=== PATIENT | male | born 1945 | race Caucasian/White ===

== ENCOUNTER 2025-02-12 11:13 | Observation (INO) ==
--- NOTE | 2025-02-12 11:36 | Emergency Department Note ---
Impression & Plan Metastases to the liver, Weight loss, Weakness, Fatigue, Elevated liver enzymes ED Provider Note NAME: MACKENZIE PUGH AGE: 79 SEX: M : 1945 ARRIVES VIA: Walk-In INFORMANT: [Patient] ED PROVIDER(S): [Carlitos Shah MD] CHIEF COMPLAINT: Doctor referred HISTORY OF PRESENT ILLNESS: The patient is a 79-year-old male who states that he was recently at his doctor's office for some weakness, weight loss and a discomfort noticed intermittently in the right upper quadrant. Today, he had an outpatient abdominal ultrasound that showed findings in his pancreas and portal vein, he was referred to the ER. The patient has lost about 10 pounds of weight. He feels fatigued and weaker than normal. He has noticed this intermittent right upper quadrant abdominal pain that seems to come on randomly. He has not noticed any fever, there is no increased cough or shortness of breath. No vomiting. He does admit that he has no appetite really anymore. The patient does have some difficulty with his urinary stream but no urinary burning. Of note, his doctor's office recently decrease his blood pressure medication as his pressure was lower in the office than it had been before. PMHx/PSHx/Social Hx: See Below PHYSICAL EXAM: GENERAL: Patient is in no acute distress. HEENT: No acute trauma, normocephalic atraumatic, mucous membranes moist, no nasal congestion. NECK: No stridor, no adenopathy, no meningismus, trachea is midline. LUNGS: Clear to auscultation bilaterally, no wheeze, no rhonchi, breath sounds equal. HEART: Without murmurs gallops or rubs, regular rate and rhythm. ABDOMEN: Soft, nontender, no peritonitis. EXTREMITIES: No cyanosis, full range of motion of all the joints without pain or difficulty. NEUROLOGIC: Oriented x 3, no acute motor or sensory deficits, no focal weakness. SKIN: No jaundice, no diaphoresis. DIFFERENTIAL DIAGNOSIS: Malignancy, pancreatitis, biliary obstruction, liver disease, electrolyte imbalance, anemia, among others. EMERGENCY DEPARTMENT PROCEDURES: MEDICAL DECISION MAKING: There is no leukocytosis. A very subtle anemia was seen. There is a normal platelet count. No worrisome coagulopathy by our testing. No renal failure or significant electrolyte abnormality. There were some liver enzyme elevations noted. No evidence for pancreatitis. ECG shows a normal sinus rhythm, no ischemia. Cardiac enzyme testing x 1 is not consistent with acute cardiac injury. Urinalysis does not show findings of infection. Chest x-ray does not show pneumonia or CHF. Abdominal and pelvis CT shows liver metastases with lymphadenopathy. No biliary obstruction. The portal vein was narrow. On exam, the patient was fairly thin but not in distress. He did not have any reproducible upper abdominal pain. The patient presents with fatigue, weakness, weight loss and an abnormal outpatient ultrasound of his abdomen. He was found by our workup to have metastatic liver disease, the source for the metastasis is unclear. The patient has no previous diagnosis of malignancy. Given the findings and the need for further investigation, hospitalization was certainly warranted. I did speak with the patient about his abnormal imaging. He understands the need for a hospital stay. I did speak with case management, the on-call hospitalist was consulted. Prior/Outside records/notes reviewed: Outpatient doctors office note from 02/10/2025 describing his presentation, findings and planned workup outpatient. ECG per my interpretation: Indication was weakness. The ECG shows a normal sinus rhythm with a rate of 78. There is a potential old septal infarct. There is some nonspecific ST change laterally. There is no ST elevation, no PVCs. The QTc is 440. Continuous Cardiac Monitoring per my interpretation: An order was placed for continuous cardiac monitoring. The monitor shows a rate of 90 with normal sinus rhythm. Imaging/x-ray results per my interpretation: Chest x-ray does not show pneumonia, cardiomegaly or CHF. Chronic Medical/Social conditions affecting care: None Care/Management discussed with: Case management, the on-call hospitalist. Level of care consideration(s): After review of the information above and other included data: --I believe the patient requires escalation of care to admission DISPOSITION: Admission Past Med/Surg History Problem List (Updated 02/12/25 @ 14:19 by Carlitos Shah MD) Elevated liver enzymes (Acute) Fatigue (Acute) Weakness (Acute) Weight loss (Acute) Metastases to the liver (Acute) Medical History Hypertension Social History Smoking Status: Never smoker Preferred Language: Japanese Feels Safe at Home: Yes Home Meds Home Medications Medication Instructions Recorded Confirmed lisinopril 20 mg tablet 20 mg PO DAILY 02/12/25 02/12/25 Results & Data (ED) Vital Signs Vital Signs - 24 hr 02/12/25 11:17 02/12/25 11:30 02/12/25 11:41 Temperature 36.6 C Temperature Source Temporal Artery Scan Pulse Rate 90 83 Pulse Rate [Apical] 88 Pulse Rhythm Regular Pulse Rhythm [Apical] Regular Pulse Strength [Apical] Normal Respiratory Rate 18 19 19 Respiratory Effort / Characteristics Non-Labored Spontaneous Non-Labored Respiratory Depth Normal Normal Respiratory Pattern Regular Regular Blood Pressure 123/81 Blood Pressure [Right Arm] 107/78 Blood Pressure Mean 95 Blood Pressure Mean [Right Arm] 87 Blood Pressure Position Sitting Blood Pressure Position [Right Arm] Lying Pulse Oximetry 96 98 98 Oxygen Delivery Method Room Air Room Air Room Air Sepsis Recent Fever Within 48 Hours No Sepsis New/Unexplained Change in Mental Status No Sepsis Action Taken by Nursing No Action Required 02/12/25 12:55 Temperature Temperature Source Pulse Rate Pulse Rate [Apical] 70 Pulse Rhythm Pulse Rhythm [Apical] Pulse Strength [Apical] Respiratory Rate 18 Respiratory Effort / Characteristics Non-Labored Spontaneous Respiratory Depth Normal Respiratory Pattern Blood Pressure Blood Pressure [Right Arm] 110/70 Blood Pressure Mean Blood Pressure Mean [Right Arm] 83 Blood Pressure Position Blood Pressure Position [Right Arm] Sitting Pulse Oximetry 97 Oxygen Delivery Method Room Air Sepsis Recent Fever Within 48 Hours Sepsis New/Unexplained Change in Mental Status Sepsis Action Taken by [place] Medications Current Medication List: was personally reviewed by me Laboratory Data Attestation: I reviewed the patient's lab results. 02/12/25 11:32 02/12/25 11:32 Lab Results 02/12/25 02/12/25 Range/Units 11:32 11:52 WBC 6.50 (4.8-10.8) K/ul RBC 4.55 L (4.70-6.10) M/uL Hgb 13.6 L (14.0-18.0) g/dl Hct 40.3 L (42.0-52.0) % MCV 88.6 (80.0-100.0) fL MCH 29.9 (25.0-34.0) pg MCHC 33.7 (32.0-36.0) g/dL RDW Std Deviation 42.3 (36.4-46.3) fL RDW Coeff of Samir 13.1 (11.5-14.5) % Plt Count 215 (130-400) K/uL MPV 9.6 (9.4-12.4) fL Immature Gran % (Auto) 0.3 % Neut % (Auto) 70.3 % Lymph % (Auto) 21.5 % [place] % (Auto) 6.5 % Eos % (Auto) 0.9 % Baso % (Auto) 0.5 % Neut # (Auto) 4.57 (1.40-6.50) K/uL Lymph # (Auto) 1.40 (1.20-3.40) K/uL [place] # (Auto) 0.42 (0.11-0.59) K/uL Eos # (Auto) 0.06 (0.00-0.50) K/uL Baso # (Auto) 0.03 (0.00-0.20) K/uL Immature Gran # (Auto) 0.02 (0.01-0.20) K/uL PT 12.2 H (9.0-12.0) Seconds INR 1.1 (0.9-1.1) APTT 23 (21-31) Seconds PTT Ratio 0.9 Sodium 139 (136-145) mmol/L Potassium 3.9 (3.5-5.1) mmol/L Chloride 103 (98-107) mmol/L Carbon Dioxide 37 H (21-32) mmol/L Anion Gap -1 L (3-11) BUN 22 (6-23) mg/dl Creatinine 0.97 (0.6-1.4) mg/dl Est Cr Clr Drug Dosing 51.4 ml/min eGFR 80.40 BUN/Creatinine Ratio 22.7 H (10-20) Glucose 110 H (70-99(Fasting)) mg/dl Calcium 8.7 (8.6-10.3) mg/dl Magnesium 2.0 (1.7-2.4) mg/dl Total Bilirubin 1.1 H (0.2-1.0) mg/dl AST 47 H (13-39) U/L ALT 34 (7-52) U/L Alkaline Phosphatase 208 H (34-104) U/L Troponin I High Sens 7.7 (0-20) pg/ml Total Protein 6.2 (6.0-8.3) gm/dl Albumin 3.8 (3.4-5.0) gm/dl Globulin 2.4 L (2.5-4.0) gm/dl Albumin/Globulin Ratio 1.6 (0.9-2) Lipase 43 (11-82) U/L Urine Color Dark Yellow Urine Appearance Clear (Clear) Urine pH 5.0 (4.5-7.5) Ur Specific [place] 1.029 (1.000-1.030) Urine Protein Trace H (Negative) Urine Glucose (UA) Negative (Negative) Urine Ketones Trace H (Negative) Urine Blood Negative (Negative) Urine Nitrite Negative (Negative) Urine Bilirubin 1+ H (Negative) Urine Urobilinogen Negative (Negative) Ur Leukocyte Esterase 1+ H (Negative) Urine WBC (Auto) 0-5 (0-5) /hpf Urine RBC (Auto) 0-2 (0-2) /hpf U Hyaline Cast (Auto) 0-2 (0-2) /lpf U Epithel Cells (Auto) 0-2 (0-2) /hpf Urine Bacteria (Auto) None Seen (None Seen) Administered Medications Discontinued Medications Ioversol (Optiray 320 100ml) 93 ml IV ONCE ONE Stop: 02/12/25 12:40 Last Admin: 02/12/25 12:40 Dose: 93 ml Documented By: Imaging Data Radiologist's Impression: Abdomen/Pelvis CT 02/12/25 11:[address] WITH IV CONTRAST CT DOSE: 446.24 mGy.cm HISTORY: abnl panc and portal vein by us outpt TECHNIQUE: Multiaxial CT images of the abdomen and pelvis were performed following the IV administration of 90 cc of Optiray, A dose lowering technique was utilized adhering to the principles of ALARA. COMPARISON STUDY: None FINDINGS: ABDOMEN: There are multiple masses scattered throughout the liver, largest measuring 8 cm. Gallbladder is unremarkable. There are multiple enlarged necrotic appearing trace hepatis lymph nodes measuring up to 3 cm. They cause mass effects and severe narrowing of the portal vein without occlusion. There are multiple other periaortic and gastrohepatic and anterior upper abdominal enlarged lymph nodes measuring up to 3 cm. Some of the lymph nodes are adjacent to the proximal pancreas and exert mass effect on the proximal pancreas. Otherwise no pancreatic mass seen. No pancreatic ductal dilatation. Spleen and adrenal glands are unremarkable. Kidneys show no hydronephrosis or calculi. There are a few small cysts at the left kidney. There are scattered atherosclerotic calcifications. No abdominal aortic aneurysm. Pelvis: Prostate is prominently enlarged and indents the urinary bladder base. Urinary bladder is decompressed. There is trace ascites at the low pelvis. There is extensive sigmoid diverticulosis. No acute diverticulitis. No free air or abscess. Osseous structures: There is osteopenia. There are diffuse findings of degenerative disc disease at the lumbar spine. There are mild degenerative changes at the hips. No acute osseous findings. IMPRESSION: 1. Diffuse metastatic disease at the liver. Extensive metastatic lymphadenopathy at the abdomen. 2. Some of the lymph nodes exert mass effect on the proximal pancreas. Unclear if these are external to the pancreas and exerting mass effect, or if there is a proximal pancreatic mass. There is no pancreatic ductal dilatation which favors that they represent metastatic lymph nodes. Severe mass effect/narrowing of the portal vein. 3. Otherwise as described. ACT 112: Positive. There are findings on this exam that require communication between the performing entity and the patient following Patient Test Result Information Act ([place] Act 112) guidelines. The above report was generated using voice recognition software. It may contain grammatical, syntax or spelling errors. Electronically signed by: Yony Santizo M.D. 02/12/2025 1:04 PM Chest X-Ray 02/12/25 11:31 XR chest 1V portable CLINICAL HISTORY: weak COMPARISON STUDY: None FINDINGS: Heart size and pulmonary vasculature are normal. No effusion, consolidation, or pneumothorax. IMPRESSION: No acute findings. ACT 112: Negative or not required by law. Electronically signed by: Yony Santizo M.D. 02/12/2025 11:48 AM Abdominal ultrasound outpatient: Impression: There is hepatomegaly with multiple underlying masses suspicious for metastatic disease. 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 There is heterogeneity of the pancreas with underlying masses. There is mild ascites. Discharge Plan Visit Data Chief Complaint: Referred by Doctor Stated Complaint: REF BY DOC, MASS ON ARTERY ED Provider: Carlitos Shah Discharge Problem: Metastases to the liver, Weight loss, Weakness, Fatigue, Elevated liver enzymes Patient Disposition: Admitted As Inpatient Condition: Fair Forms Stand Alone Forms: Screen Fix [place] Prescriptions Prescriptions: No Action lisinopril 20 mg tablet 20 mg PO DAILY Rx Instructions: last filled 11/08/24 90 day supply Referrals Referrals: Obdulia Erickson DO [Primary Care Provider] - Discharge Problem: Fatigue Qualifiers: Fatigue type: unspecified Qualified Code(s): R53.83 - Other fatigue
--- NOTE | 2025-02-12 11:49 | XRay Report ---
XR chest 1V portable CLINICAL HISTORY: weak COMPARISON STUDY: None FINDINGS: Heart size and pulmonary vasculature are normal. No effusion, consolidation, or pneumothora x. IMPRESSION: No acute findings. ACT 112: Negative or not required by law. Electronically signed by: Yony Santizo M.D. 02/12/2025 11:48 AM
[2025-02-12 11:50] LABS: Basophils # (auto) 0.03 K/uL (0.00-0.20); Basophils % (auto) 0.5 %; Eosinophils # (auto) 0.06 K/uL (0.00-0.50); Eosinophils % (auto) 0.9 %; Hematocrit (blood only) 40.3 % (42.0-52.0); Hemoglobin 13.6 g/dl (14.0-18.0); Immature Granulocytes # (auto) 0.02 K/uL (0.01-0.20); Immature Granulocytes % (auto) 0.3 %; Lymphocytes % (auto) 21.5 %; Mean Corpuscular Hemoglobin 29.9 pg (25.0-34.0); Mean Corpuscular Hgb Conc 33.7 g/dL (32.0-36.0); Mean Corpuscular Volume 88.6 fL (80.0-100.0); Mean Platelet Volume 9.6 fL (9.4-12.4); Monocytes # (auto) 0.42 K/uL (0.11-0.59); Monocytes % (auto) 6.5 %; Neutrophils # (auto) 4.57 K/uL (1.40-6.50); Neutrophils % (auto) 70.3 %; Platelet Count 215 K/uL (130-400); RDW Coefficient of Variation 13.1 % (11.5-14.5); RDW Standard Deviation 42.3 fL (36.4-46.3); Red Blood Count 4.55 M/uL (4.70-6.10)
[2025-02-12 12:07] LABS: Albumin Globulin Ratio 1.6 (0.9-2); Albumin Level 3.8 gm/dl (3.4-5.0); BUN Creatinine Ratio 22.7 (10-20); Bilirubin,Total 1.1 mg/dl (0.2-1.0); Calcium 8.7 mg/dl (8.6-10.3); Creatinine Clr Calc Pharmacy 51.4 ml/min; Globulin 2.4 gm/dl (2.5-4.0); Potassium 3.9 mmol/L (3.5-5.1); Total Protein 6.2 gm/dl (6.0-8.3)
[2025-02-12 12:12] LABS: Appearance Urine Clear (Clear); Bacteria Urine Automated None Seen (None Seen); Bilirubin Urine 1+ (Negative); Blood Urine Negative (Negative); Cast Urine Automated 0-2 /lpf (0-2); Color Urine Dark Yellow; Epithelial Cell Urine Auto 0-2 /hpf (0-2); Glucose Urine UA Negative (Negative); Ketones Urine Trace (Negative); Leukocyte Esterase Urine 1+ (Negative); Nitrite Urine Negative (Negative); Protein Urine Trace (Negative); RBC Urine Automated 0-2 /hpf (0-2); Specific Gravity Urine 1.029 (1.000-1.030); Urobilinogen Urine Negative (Negative); WBC Urine Automated 0-5 /hpf (0-5)
[2025-02-12 12:14] LABS: Troponin I High Sensitivity 7.7 pg/ml (0-20)
[2025-02-12 12:18] LABS: INR 1.1 (0.9-1.1); Partial Thromboplastin Ratio 0.9; Partial Thromboplastin Time 23 Seconds (21-31); Prothrombin Time 12.2 Seconds (9.0-12.0)
[2025-02-12] MEDS: OPTIRAY 320 100ml IV ONE (12:40)
--- NOTE | 2025-02-12 13:00 | Electrocardiogram Report ---
Test Reason : Blood Pressure : */* mmHG Vent. Rate : 78 BPM Atrial Rate : 78 BPM P-R Int : 146 ms QRS Dur : 74 ms QT Int : 386 ms P-R-T Axes : 69 34 46 degrees QTcB Int : 440 ms Normal sinus rhythm Left atrial enlargement Low voltage QRS Septal infarct , age undetermined Abnormal ECG No previous ECGs available Confirmed by Zeferino Lucero ([id number]) on 02/12/2025 1:00:18 PM Referred By: Obdulia Erickson Confirmed By: Zeferino Lucero
--- NOTE | 2025-02-12 13:06 | CT Scan Report ---
ABDOMEN AND PELVIS CT WITH IV CONTRAST CT DOSE: 446.24 mGy.cm HISTORY: abnl panc and portal vein by us outpt TECHNIQUE: Multiaxial CT images of the abdomen and pelvis were performed following the IV administrat ion of 90 cc of Optiray, A dose lowering technique was utilized adhering to the principles of ALARA. COMPARISON STUDY: None FINDINGS: ABDOMEN: There are multiple masses scattered throughout the liver, largest measuring 8 cm. Gallbladde r is unremarkable. There are multiple enlarged necrotic appearing trace hepatis lymph nodes measuring up to 3 cm. They cause mass effects and severe narrowing of the portal vein without occlusion. There are multiple other periaortic and gastrohepatic and anterior upper abdominal enlarged lymph nodes me asuring up to 3 cm. Some of the lymph nodes are adjacent to the proximal pancreas and exert mass effe ct on the proximal pancreas. Otherwise no pancreatic mass seen. No pancreatic ductal dilatation. Sple en and adrenal glands are unremarkable. Kidneys show no hydronephrosis or calculi. There are a few sm all cysts at the left kidney. There are scattered atherosclerotic calcifications. No abdominal aortic aneurysm. Pelvis: Prostate is prominently enlarged and indents the urinary bladder base. Urinary bladder is dec ompressed. There is trace ascites at the low pelvis. There is extensive sigmoid diverticulosis. No ac [place] diverticulitis. No free air or abscess. Osseous structures: There is osteopenia. There are diffuse findings of degenerative disc disease at t he lumbar spine. There are mild degenerative changes at the hips. No acute osseous findings. IMPRESSION: 1. Diffuse metastatic disease at the liver. Extensive metastatic lymphadenopathy at the abdomen. 2. Some of the lymph nodes exert mass effect on the proximal pancreas. Unclear if these are external to the pancreas and exerting mass effect, or if there is a proximal pancreatic mass. There is no panc reatic ductal dilatation which favors that they represent metastatic lymph nodes. Severe mass effect/ narrowing of the portal vein. 3. Otherwise as described. ACT 112: Positive. There are findings on this exam that require communication between the performing entity and the patient following Patient Test Result Information Act ([place] Act 112) guidelines. The above report was generated using voice recognition software. It may contain grammatical, syntax o r spelling errors. Electronically signed by: Yony Santizo M.D. 02/12/2025 1:04 PM
--- NOTE | 2025-02-12 14:19 | History & Physical Report ---
Date of Service February 12, 2025 Assessment & Plan (1) Liver masses: (2) Elevated liver enzymes: (3) Weight loss: (4) Fatigue: (5) Hypertension: (6) Hyperlipidemia: Plan 79 year old male with PMH significant for HTN, HLD, and elevated PSA who presented to the ED today after an abdominal ultrasound showed multiple liver masses concerning for metastasis. Liver masses Hepatomegaly appreciated and left supraclavicular enlarged lymph node Plan for US guided biopsy by IR in the am Ordered CEA, CA-19, PSA, AFP, pepsinogen Elevated liver enzymes Weight loss Likely secondary to possible liver metastasis HTN On lisinopril with recent dose reduction from 20mg to 10mg due to low BPs BPs stable here and patient did not take this am - will hold lisinopril for now Monitor BPs and consider resumption of lisinopril if elevated HLD Not on medications at home DVT Prophylaxis: TEDs and SCDs; held off on other prophylaxis due to procedure tomorrow Code Status: FULL CODE - As per discussion at bedside with the patient. PCP: Obdulia Oswald Disposition: admit to [facility] under obs Patient seen in collaboration with Dr Chou. Please see addendum. I spent a total of 75 minutes coordinating, documenting and providing care for this patient excluding time spent in the performance of separately billed services or time spent by another provider/QHP. Admission and Anticipated Discharge Date Admission Date: 02/12/2025 History of Present Illness Chief Complaint: RUQ pain Primary Care Provider: Obdulia Erickson, 79 year old male with PMH significant for HTN, HLD, and elevated PSA who presented to the ED today by recommendation of his PCP after concerning imaging. He was seen by his PCP on 02/10 for routine follow up but mentioned a painful lump in his RUQ x1 month as well as poor appetite, fatigue, and weight loss. He had an abdominal ultrasound done which showed multiple liver masses suspicious for metastasis and was referred to the ED. He reports intermittent RUQ pain that feels like a bharti horse and only comes on when he makes certain movements. He also endorses a gradual weight loss over the last year of approximately 10 lbs. He denies fevers, chills, night sweats, cough, cold symptoms, chest pain, SOB, other abdominal pain, N/V/D, melena, hematochezia. Allergies Allergy/AdvReac Type Severity Reaction Status Date / Time atorvastatin AdvReac Verified 02/12/25 16:21 Home Medications Medication Instructions Recorded Confirmed Type lisinopril 10 mg tablet 10 mg PO DAILY 02/12/25 02/12/25 History Past Med/Surg History Problem List (Updated 02/12/25 @ 16:29 by MADI Garcia) Liver masses Hyperlipidemia Hypertension Elevated liver enzymes (Acute) Fatigue (Acute) Weakness (Acute) Weight loss (Acute) Metastases to the liver (Acute) Surgical History (Updated 02/12/25 @ 16:27 by MADI Garcia) History of appendectomy H/O vitrectomy H/O cataract removal with insertion of prosthetic lens H/O inguinal hernia repair Family History (Updated 02/12/25 @ 16:27 by MADI Garcia) Father Cancer Social History (Updated 02/12/25 @ 16:27 by MADI Garcia) Smoking Status: Never smoker Tobacco Type: Smokeless Tobacco (Dip or Chew) Do You Dip or Chew Tobacco: Yes; Hx Alcohol Use: Yes Hx Substance Use: No Preferred Language: Bermudian Current Living Situation: Spouse Feels Safe at Home: Yes Assistive Devices: None Review of Systems Review of Systems: All systems reviewed & are unremarkable except as noted in HPI & below Physical Exam Physical Exam: General/Psych: WD/WN, sitting up in bed, NAD, conversing easily, euthymic affect Head: normocephalic, atraumatic Eyes: normal inspection, PERRL, conjunctivae pink, anicteric sclerae ENT: external ear and nose normal, oropharynx normal Neck: normal visual inspection, trachea midline, no thyromegaly, +enlarged supraclavicular lymph node Respiratory: normal respiratory effort, lungs clear to auscultation, no wheeze/rales/rhonchi, no accessory muscle use Cardiovascular: regular rate and rhythm, no murmur/rub/gallop, no JVD Extremities: no cyanosis or clubbing, normal peripheral pulses, no BLE edema Abdomen/GI: normal bowel sounds, soft, nontender, +hepatosplenomegaly Neurologic/MSK: A+Ox3, CN's II-XI intact bilaterally, motor strength 5/5, moves all extremities Skin: no rashes, normal color, warm and dry Results & Data Results & Data Vital Signs (Past 12 Hours) Vital Signs Temp Pulse Pulse Resp BP BP Pulse Ox 02/12/25 12:55 70 18 110/70 97 02/12/25 11:41 83 19 98 02/12/25 11:30 88 19 107/78 98 02/12/25 11:17 36.6 C 90 18 123/81 96 O2 Del Method 02/12/25 12:55 Room Air 02/12/25 11:41 Room Air 02/12/25 11:30 Room Air 02/12/25 11:17 Room Air Laboratory Results Short CBC 02/12/25 Range/Units 11:32 WBC 6.50 (4.8-10.8) K/ul Hgb 13.6 L (14.0-18.0) g/dl Hct 40.3 L (42.0-52.0) % Plt Count 215 (130-400) K/uL BMP 02/12/25 11:32 Sodium 139 Potassium 3.9 Chloride 103 Carbon Dioxide 37 H BUN 22 Creatinine 0.97 Glucose 110 H Calcium 8.7 Liver Function 02/12/25 Range/Units 11:32 Total Bilirubin 1.1 H (0.2-1.0) mg/dl AST 47 H (13-39) U/L ALT 34 (7-52) U/L Alkaline Phosphatase 208 H (34-104) U/L Albumin 3.8 (3.4-5.0) gm/dl Urine 02/12/25 Range/Units 11:52 Urine Color Dark Yellow Urine Appearance Clear (Clear) Urine pH 5.0 (4.5-7.5) Ur Specific [place] 1.029 (1.000-1.030) Urine Protein Trace H (Negative) Urine Glucose (UA) Negative (Negative) I have independently reviewed and interpreted patient's admitting labs including CBC, CMP, PTT, PT/INR, troponin, lipase, and UA. Diagnostic Findings EXAM US ABDOMEN LIMITED-02/12/2025 9:46 am HISTORY RUQ painful lump at times TECHNIQUE Sonographic imaging of the abdomen. COMPARISON None FINDINGS LIVER: Enlarged, 20.6 cm. Diffuse heterogeneity, with multiple underlying masses. No mass. 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 BILE DUCTS: No intrahepatic or extrahepatic duct dilatation. Common bile duct measures 4 mm. GALLBLADDER: Mild nonspecific wall thickening. No cholelithiasis. No pericholecystic fluid or sonographic Delgado's sign. PANCREAS: Heterogeneity of the pancreas with underlying hypoechoic masses. RIGHT KIDNEY: 10.4 cm in length. Normal size and echogenicity. No hydronephrosis, shadowing calculi, or mass. LEFT KIDNEY: in length. Normal size and echogenicity. No hydronephrosis, shadowing calculi, or mass. SPLEEN: 9.9 cm. Normal size without mass. AORTA: Visualized portions normal in caliber. OTHER: Mild ascites. IMPRESSION IMPRESSION 1. Hepatomegaly with multiple underlying masses, suspicious for metastatic disease. 2. 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 3. Heterogeneity of the pancreas with underlying masses. 4. Mild ascites. Recommend MRI/MRCP abdomen with gadolinium. Abdomen/Pelvis CT 02/12/25 11:[address] WITH IV CONTRAST CT DOSE: 446.24 mGy.cm HISTORY: abnl panc and portal vein by us outpt TECHNIQUE: Multiaxial CT images of the abdomen and pelvis were performed following the IV administration of 90 cc of Optiray, A dose lowering technique was utilized adhering to the principles of ALARA. COMPARISON STUDY: None FINDINGS: ABDOMEN: There are multiple masses scattered throughout the liver, largest measuring 8 cm. Gallbladder is unremarkable. There are multiple enlarged necrotic appearing trace hepatis lymph nodes measuring up to 3 cm. They cause mass effects and severe narrowing of the portal vein without occlusion. There are multiple other periaortic and gastrohepatic and anterior upper abdominal enlarged lymph nodes measuring up to 3 cm. Some of the lymph nodes are adjacent to the proximal pancreas and exert mass effect on the proximal pancreas. Otherwise no pancreatic mass seen. No pancreatic ductal dilatation. Spleen and adrenal glands are unremarkable. Kidneys show no hydronephrosis or calculi. There are a few small cysts at the left kidney. There are scattered atherosclerotic calcifications. No abdominal aortic aneurysm. Pelvis: Prostate is prominently enlarged and indents the urinary bladder base. Urinary bladder is decompressed. There is trace ascites at the low pelvis. There is extensive sigmoid diverticulosis. No acute diverticulitis. No free air or abscess. Osseous structures: There is osteopenia. There are diffuse findings of degenerative disc disease at the lumbar spine. There are mild degenerative changes at the hips. No acute osseous findings. IMPRESSION: 1. Diffuse metastatic disease at the liver. Extensive metastatic lymphadenopathy at the abdomen. 2. Some of the lymph nodes exert mass effect on the proximal pancreas. Unclear if these are external to the pancreas and exerting mass effect, or if there is a proximal pancreatic mass. There is no pancreatic ductal dilatation which favors that they represent metastatic lymph nodes. Severe mass effect/narrowing of the portal vein. 3. Otherwise as described. ACT 112: Positive. There are findings on this exam that require communication between the performing entity and the patient following Patient Test Result Information Act ([place] Act 112) guidelines. The above report was generated using voice recognition software. It may contain grammatical, syntax or spelling errors. Electronically signed by: Yony Santizo M.D. 02/12/2025 1:04 PM Chest X-Ray 02/12/25 11:31 XR chest 1V portable CLINICAL HISTORY: weak COMPARISON STUDY: None FINDINGS: Heart size and pulmonary vasculature are normal. No effusion, c onsolidation, or pneumothorax. IMPRESSION: No acute findings. ACT 112: Negative or not required by law. Electronically signed by: Yony Santizo M.D. 02/12/2025 11:48 AM ECG Additional Comments: I have independently reviewed and interpreted patient's admitting EKG which revealed: NSR at a rate of 78bpm Code Status & VTE Plan Code Status Full Code Supervising Physician Co-Signing Physician Notes Attending addendum: The patient was seen and examined in emergency room in presence of the family members He has been complaining of intermittent pain in the right upper quadrant for about 1 year associated with loss of appetite and weight loss of about 20 pounds for the last few months Denies any nausea and/or vomiting or any problem with urine or bowel habit Feels early satiety No fever and/or chills, no chest pain palpitation no shortness of breath On examination Lying in bed without any acute distress Remains hemodynamically stable and is afebrile Chestclear to auscultate bilaterally Abdomenliver is palpable and mildly tender on deep palpation, bowel sounds present Extremitiesno edema General examination revealed no lymphadenopathy except left supraclavicular lymph node is palpable CNSalert, awake and oriented x 3 and no focal sensory or no motor deficit appreciated His admission labs, medications and imaging studies reviewed CT of the abdomen pelvis showed significant and extensive metastasis in the liver with necrotic lymph nodes around trace hepatis compressing the portal vein Assessment and plan Has metastatic disease in the differential is going to be gastric carcinoma, and to rule out colonic malignancy, pancreatic cancer, prostate cancer Will probably get supraclavicular node biopsy tomorrow/liver biopsy when feas ible Will check tumor markers like CEA, PSA, CA 199 , alpha-fetoprotein and pepsin was not Agree with assessment and plan as outlined above by Arcelia PAYNE. MADI Turner and take the full responsibility here in the hospital Total time taken to document all this was [address] Manish Chou (4) Fatigue Fatigue type: unspecified Qualified Code(s): R53.83 - Other fatigue
[2025-02-12] MEDS ORDERED: POLYETHYLENE (MIRALAX) 17 GM PACK PO PRN (18:21)
[2025-02-12] MEDS ORDERED: ACETAMINOPHEN 325 MG TAB PO PRN (18:21)
--- OUTSIDE RECORDS SUMMARY | 2025-02-13 03:36 | External Medical Summary | Summary of Care ---
Author Name Unknown Organization [facility] Address [address] [place] [address] Phone [phone] Care Team Providers Care Brake Linings Coater Name Role Phone Obdulia Erickson DO Primary Care Provider [phone] Reason for Visit * Reason Onset Date Comments Encounter Created in Error 02/12/2025 Encounter Details Date Type Department Care Team (Late st Contact Info) Description 02/12/2025 Telephone Family [address] [phone] [place] Jaime [address] [place] [address] Encounter Created in Error Allergies Active Allergy Reactions Criticality Noted Date Comments Atorvastatin Muscle pain 01/06/2018 documented as of this encounter (statuses as of 02/12/2025) Medications FLAXSEED (LINSEED) PO POWD daily Active Lisinopril 10 MG Oral Tablet (Prinivil)Indica tions:HTN, goal below 140/90 Take 1 Tablet by mouth in the morning. 90 Tablet 3 02/10/2025 Active documented as of this encounter (statuses as of 02/12/2025) Active Problems Problem Noted Date Diagnosed Date Elevated prostate specific antigen (PSA) 025 Family history of prostate cancer in father 12/20 History of retinal detachment 06/20/2021 Hx of nonmelanoma skin cancer 05/12/2019 Overview (05/12/2019): basal cell carcinoma (central back 2010) Actinic keratoses 05/12/2019 History of basal cell cancer 07/01/2012 Overview (07/01/2012): central back 06/01 HTN, goal below 140/90 06/02/2011 Hyperlipidemia with target LDL less than 100 09/2011 documented as of this encounter (statuses as of 02/12/2025) Resolved Problems Problem Noted Date Diagnosed Date Resolved Date Left inguinal hernia 10/30/2023 024 Prediabetes 01/14/2017 01/06/2019 Tobacco use disorder 06/02/2011 014 HTN, goal below 130/80 03/06/201106/02 documented as of this encounter (statuses as of 02/12/2025) Immunizations Name Administration Dates Next Due COVID-19 mRNA, LNP-s, No Pre serve, 2-Dose Series (Moderna) 03/16/2021,02/16/2021 COVID-19, mRNA, LNP-s, PF, B ooster, 100mcg/0.5mg (Moderna) 11/01/2021 DTaP Dipth/Tet/Acell Pertussis (Infanrix), Peds 03/22/2010 Seasonal Influenza Vac., MDV , IM, 0.5 mL (Fluzone) 07/22/2014,08/09/2013,07/22/2012,2010,07/31/2010 Seasonal Influenza, High Dos e, Trivalent, PF, IM (Fluzone HD) 08/02/2024 Seasonal Influenza, PF, 6 M & above, IM , (FluLaval or Fluzone) 08/06/2021,07/24/2020,07/28/2019,2017,08/14/2017 Seasonal Influenza, Quadriva lent Hd (Fluzone Hd) 08/11/2023,07/29/2022 Seasonal Influenza, Quadriva lent, No Preserve, IM 09/04/2016,08/23/2015 TDAP, Age 7 and older, IM (Adacel) 06/02/2011 documented as of this encounter Social History Tobacco Use Types Packs/Day Years Used Date Smoking Tobacco: Never Smokeless Tobacco: Current Snuff Comments:1 can per 2-3 days Alcohol Use Standard Drinks/Week Comments Yes 2.5 (1 standard drink = 0.6 oz p ure alcohol) 1-2 beers a night AUDIT-C Answer Date Recorded Frequency of Alcohol Consumption 4 or more times a week 06/15/2021 Average Number of Drinks 1 or 2 021 Frequency of Binge Drinking Not on file 05/23 PHQ-2 Answer Date Recorded PHQ-2 Score 0 08/25/2018 Sex and Gender Information Value Date Recorded Sex Assigned at Not on file Legal Sex Male 5:27 AM EST Gender Identity Not on file Sexual Orientation Not on file 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 Industry 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 Start Date Job 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 Not on file Not on file Not on file documented as of this encounter Plan of Treatment Upcoming Encounters Date Type Department Care Team (Late st Contact Info) Description 02/13/2025 9:00 AM EDT Imaging Radiology [address] [place] [address] 02/13/2025 9:30 AM EDT Imaging Radiology [address] [place] [address] Health Maintenance Due Date Last Done Comments Depression Screening 1957 Pneumococcal Vaccine: 50+ Years (1 of 1 - PCV) 1997 Zoster Vaccines (1 of 2) 1997 Adult Wellness Visit 06/11/2016 06/11/2015 DTap/Tdap Vaccines (3 - Td or Tdap) 06/02/2021 06/02/2011, 03/22/2010 COVID-19 Vaccine (4 - season) 2024 11/01/2021, 03/16/2021, 02/16/2021 Albumin/Creatinine Ratio 06/16/2025 06/16/2022 GFR 02/10/2026 02/10/2025, 05/24, 06/19/2023, Additional history exists Fecal Occult Blood Test Discontinued 01/18/2017 Cologuard Discontinued 01/13/2019, 01/01/2019 Colorectal Cancer Screening Discontinued Influenza Vaccine (FLU shot) Completed 08/02/2024, 08/11/2023, 08/11/2023, Additional history exists Colonoscopy Discontinued HPV (Gardasil) Vaccine Aged Out No lo nger eligible based on patient's age to complete this topic Hepatitis B Vaccine Aged Out No longe r eligible based on patient's age to complete this topic MENINGOCOCCAL (MENACTRA/MENVEO) Aged Out No longer eligible based on patient's age to complete this topic Meningitis B Vaccine (Bexsero/Trumemba) Aged Out No longer eligible based on patient's age to complete this topic Sigmoidoscopy Discontinued documented as of this encounter Medical Devices Implanted Type Area Butcher All Round Device Identifier Shelf Expiration Date Model / Serial / Lot Lens 20.5 [id number] - [id number] - [id number] Implanted:Qty: 1 on 01/18/2022 by Eliu Santana DO at OR [facility] Left: Eye MURRAY : SURGICAL 03/23/2026 [id number] / [id number] / Patch Mesh Pre-W/Cord Opening - [id number] Implanted:Qty: 1 on 10/30/2023 by Cash Argueta MD at OR [facility] Left: Abdomen CR BARD : DAVOL 10/18/2025 [id number] / / [id number] Description:left inguinal documented as of this encounter Advance Directives * Full Code (Latest Code Status on File) Date Activated Date Inactivated Comments 10/30/2023 7:43 AM 10/30/2023 2:16 PM This order ref lects the patients wishes and were consensually agreed upon. Question Answer Comments Discussion of Advance Directives occurred with: Patient Care Teams Brake Linings Coater Relationship Specialty Start Date End Date Obdulia Erickson DO [address] [place] [address] [place] [address] PCP - General Internal Medicine 01/01/19 documented as of this encounter
--- OUTSIDE RECORDS SUMMARY | 2025-02-13 03:37 | External Medical Summary | Summary of Care ---
Author Name Unknown Organization [facility] Address [address] [place] [address] Phone [phone] Care Team Providers Care Consultant Name Role Phone Obdulia Erickson DO Primary Care Provider Reason for Visit * Reason Onset Date Comments Referral 02/10/2025 [facility]OLOG[facility] Encounter Details Date Type Department Care Team ([facility] st Contact Info) Description 02/10/2025 Telephone Family Medicine [address] [phone] Obdul[address] Erickson [address] [address] Referral ([facility]) Allergies Active Allergy Reactions Criticality Noted Date Comments Atorvastatin Muscle pain 01/06/2018 documented as of this encounter (statuses as of 02/10/2025) Medications FLAXSEED (LINSEED) PO POWD daily Active Lisinopril 10 MG Oral Tablet (Prinivil)Indica tions:HTN, goal below 140/90 Take 1 Tablet by mouth in the morning. 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 I faxed referral,demo's and notes to [facility] Urology [phone]. Noted on fax cover sheet, I will fax updated PSA to them when finalized. documented in this encounter Plan of Treatment Upcoming Encounters Date Type Department Care Team (Late st Contact Info) Description 02/12/2025 9:00 AM EDT Imaging Radiology [address] [place] [address] Health Maintenance Due Date Last Done Comments Depression Screening 1957 Pneumococcal Vaccine: 50+ Years (1 of 1 - PCV) 1997 Zoster Vaccines (1 of 2) 1997 Adult Wellness Visit 06/11/2016 06/11/2015 DTap/Tdap Vaccines (3 - Td or Tdap) 06/02/2021 06/02/2011, 03/22/2010 COVID-19 Vaccine ( - season) 2024 11/01/2021, 03/16/2021, 02/16/2021 Albumin/Creatinine Ratio 06/16/2025 06/16/2022 GFR 06/20/2025 06/20/2024, 08/06/2023, 06/16/2022, Additional history exists Fecal Occult Blood Test [...] this encounter Medical Devices Implanted Type Area Diver Pumper Device Identifier Shelf Expiration Date Model / Serial / Lot Lens 20.5 [id number] - [id number] - [id number] Implanted:Qty: 1 on 01/18/2022 by Eliu Santana DO at OR [facility] Left: Eye MURRAY : SURGICAL 03/23/2026 [id number] / [id number] / Patch Mesh Pre-W/Cord Opening - [id number] Implanted:Qty: 1 on 10/30/2023 by Cash Argueta MD at OR [facility] Left: Abdomen CR BARD : DAVOL 10/18/2025 [id number] / / [id number] Description:left inguinal documented as of this encounter Advance Directives * Full Code (Latest Code Status on File) Date Activated Date Inactivated Comments 10/30/2023 7:43 AM 10/30/2023 2:16 PM This order ref lects the patients wishes and were consensually agreed upon. Question Answer Comments Discussion of Advance Directives occurred with: Patient Care Teams Consultant Relationship Specialty Start Date End Date Obdulia Erickson DO [address] [place] [address] [place] [address] PCP - General Internal Medicine 01/01/19 documented as of this encounter
--- OUTSIDE RECORDS SUMMARY | 2025-02-13 03:37 | External Medical Summary | Summary of Care ---
Author Name Unknown Organization [facility] Address [address] [place] [address] Phone [phone] Care Team Providers Care Waffle Machine Operator Name Role Phone Obdulia Erickson DO Primary Care Provider [phone] Reason for Referral * Evaluate & Treat - Unlimited Visits (Within 3 days (urgent)) - Authorized Specialty Diagnoses / Procedures Referred By Abeba mancia Referred To Contact Urology Diagnoses Elevated prostate specific antigen (PSA) Obdulia Erickson DO [address] [place] [address] [place] [address] Phone: tel: fax: Referral ID Status Reason Start Date Expiration Date Visits Requested Visits Authorized [id number] Authorized Specialty Services Required 02/10/2025 999 999 Question Answer Referral Priority Within 3 days (urgent) Where should this appointment be scheduled? [facility] What is the patient being referred for? Elevated PSA Reason for Visit * Reason Comments Re-Check Pt c/o painful lump in lower right side of abdomen; no appetite; fatigue; back pain Encounter Details Date Type Department Care Team (Late st Contact Info) Description 02/10/2025 10:30 AM EDT Office Visit Family Medicine [address] [place] [phone] Obdulia Erickson DO [address] [place] [address] [place] [address] HTN, goal below 140/90*; Hyperlipidemia with target LDL less than 100; Elevated prostate specific antigen (PSA); RUQ pain; Lump in neck Allergies Active Allergy Reactions Criticality Noted Date Comments Atorvastatin Muscle pain 01/06/2018 documented as of this encounter (statuses as of 02/10/2025) Medications FLAXSEED (LINSEED) PO POWD daily Active Lisinopril 10 MG Oral Tablet (Prinivil)Indic ations:HTN, goal below 140/90 Take 1 Tablet by mouth in the morning. 90 Tablet 3 5 Active Lisinopril 20 MG Oral Tablet (Prinivil)Indic ations:takes in the evening Take 1 Tablet by mouth at bedtime. 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 Not on file Not on file Not on file documented as of this encounter Last Filed Vital Signs Vital Sign Reading Time Taken Comments Blood Pressure 101/55 02/10/2025 10:33 AM EDT Pulse 85 02/10/2025 10:33 AM EDT Temperature 36.7 °C (98 °F) 02/10/2025 10:33 AM EDT Respiratory Rate - - Oxygen Saturation 97% 02/10/2025 10:33 AM EDT Inhaled Oxygen Concentration - - Weight 59 kg (130 lb) 02/10/2025 10:33 AM EDT Height - - Body Mass Index 21.63 10/30/2023 7:05 AM EST documented in this encounter Progress Notes * Obdulia Erickson, DO - 02/10/2025 10:33 AM EDT Subjective: Matthew Zafar is a 79 year old male. Chief Complaint Patient presents with Re-Check Pt c/o painful lump in lower right side of abdomen; no appetite; fatigue; back pain HPI: Matthew Zafar presents today for routine follow up. Concerns today include a hard, painful lump in his RUQ in the area of his gallbladder x 1 month. There is no particular pattern to when it comes out. His appetite is poor. Weight is down another 3#. His PSA was elevated on labs last May. We attempted to reach him by phone and by letter but he said he never got it. His notes that he may have gotten it and decided to not do anything about it as he sometimes declines recommendations. Urine stream is weak. He is not moving his bowels well but thinks this could be due to not eating much. He does have some back pain in his middle to lower back - he thinks it could be from sitting in a chair and being less active. He has used Voltaren with some relief. BP is low here today. Occ lightheadedness. He denies chest pain. No LE edema. Discussed tetanus shot - he declines. PMH: Patient Active Problem List Diagnosis HTN, goal below 140/90 Hyperlipidemia with target LDL less than 100 History of basal cell cancer Hx of nonmelanoma skin cancer Actinic keratoses History of retinal detachment Family history of prostate cancer in father Elevated prostate specific antigen (PSA) Current Outpatient Medications Medication Sig Dispense Refill FLAXSEED (LINSEED) PO POWD daily Lisinopril 20 MG Oral Tablet (Prinivil) Take 1 Tablet by mouth at bedtime. 90 Tablet 3 No current facility-administered medications for this visit. Review of patient's allergies indicates: Allergen Reactions Atorvastatin Muscle pain Objective: BP 101/55 | Pulse 85 | Temp 98 °F (36.7 °C) | Wt 130 lb (59 kg) | SpO2 97% | BMI 21.63 kg/m² | BSA 1.64 m² General: alert, healthy, no distress, well nourished, and well developed Neck: supple, (+) adenopathy of the left lower neck Heart: regular rate & rhythm and no murmur Lungs: chest symmetric with normal AP diameter, no chest deformities noted, normal respiratory rateand rhythm, lungs clear to auscultation Abdomen: abdomen soft, non-tender, and some fullness of the RUQ - ? Palpable liver Extremities: no joint deformities, effusion, or inflammation, no edema Neuro Exam: alert & oriented x 3 with fluent speech, no focal motor/sensory deficits, gait normal Skin: skin color, texture, turgor are normal, no rashes or significant lesions ASSESSMENT/PLAN: HTN, goal below 140/90 (Primary) - reduce lisinopril dose to 10 mg daily - Lisinopril 10 MG Oral Tablet (Prinivil); Take 1 Tablet by mouth in the morning. Hyperlipidemia with target LDL less than 100 - he is intolerant of statins due to myalgias. Declines medicine at this time. Elevated prostate specific antigen (PSA) - repeat level today and refer to urology. - PSA; Future; Expected date: 02/10/2025 - ADULT/PEDS UROLOGY REFERRAL OP RUQ pain - ?hepatomegaly vs gallbladder problem. Check labs and imaging. - US ABDOMEN LIMITED; Future; Expected date: 02/10/2025 - COMPREHENSIVE METABOLIC PANEL; Future; Expected date: 02/10/2025 - CBC WITH WBC DIFFERENTIAL AND ANEMIA REFLEX WORKUP; Future; Expected date: 02/10/2025 Lump in neck - US HEAD AND NECK; Future; Expected date: 02/10/2025 Follow-up: Return in about 3 months (around 05/12/2025). | Check-out note: Labs today. Urology GABRIELA with our group or [place]. Obdulia Erickson DO documented in this encounter Plan of Treatment Upcoming Encounters Date Type Department Care Team (Late st Contact Info) Description 02/12/2025 9:00 AM EDT Imaging Radiology [address] [place] [address] Pending Results Name Type Priority Associated Diagnoses Date/Time PSA Lab Routine Elevated prostate specific antigen (PSA) 02/10/2025 11:05 AM EDT COMPREHENSIVE METABOLIC PANEL Lab Routine RUQ pain 02/10/2025 11:05 AM EDT CBC WITH WBC DIFFERENTIAL AND ANEMIA REFLEX WORKUP Lab Routine RUQ pain 02/10/2025 11:05 AM EDT US HEAD AND NECK Medical Imaging Routine Lump in neck 02/10/2025 11:45 AM EDT Scheduled Orders Name Type Priority Associated Diagnoses Orde r Schedule PSA Lab Routine Elevated prostate specific antigen (PSA) Expected: 02/10/2025 (Approximate), Expires: 02/10/2026 US ABDOMEN LIMITED Medical Imaging Routine RUQ pain Expected: 02/10/2025 (Approximate), Expires: 03/12/2026 COMPREHENSIVE METABOLIC PANEL Lab Routine RUQ pain Expected: 02/10/2025 (Approximate), Expires: 02/10/2026 CBC WITH WBC DIFFERENTIAL AND ANEMIA REFLEX WORKUP Lab Routine RUQ pain Expected: 02/10/2025 (Approximate), Expires: 02/10/2026 US HEAD AND NECK Medical Imaging Routine Lump in neck Expected: 02/10/2025 (Approximate), Expires: 03/12/2026 Scheduled Referrals Name Type Priority Associated Diagnoses Orde r Schedule ADULT/PEDS UROLOGY REFERRAL OP Referral Within 3 days (urgent) Elevated prostate specific antigen (PSA) Ordered: 02/10/2025 Health Maintenance Due Date Last Done Comments Depression Screening 1957 Pneumococcal Vaccine: 50+ Years (1 of 1 - PCV) 1997 Zoster Vaccines (1 of 2) 1997 Adult Wellness Visit 06/11/2016 06/11/2015 DTap/Tdap Vaccines (3 - Td or Tdap) 06/02/2021 06/02/2011, 03/22/2010 COVID-19 Vaccine (4 - season) 2024 11/01/2021, 03/16/2021, 02/16/2021 Albumin/Creatinine Ratio 06/16/2025 06/16/2022 GFR 06/20/2025 06/20/2024, 05/23, 06/16/2022, Additional history exists Fecal Occult Blood [...] this encounter Medical Devices Implanted Type Area Industrial Machine System Technician Device Identifier Shelf Expiration Date Model / Serial / Lot Lens 20.5 [id number] - [id number] - [id number] Implanted:Qty: 1 on 01/18/2022 by Eliu Santnaa DO at OR [facility] Left: Eye MURRAY : SURGICAL 03/23/2026 [id number] / [id number] / Patch Mesh Pre-W/Cord Opening - [id number] Implanted:Qty: 1 on 10/30/2023 by Cash Argueta MD at OR [facility] Left: Abdomen CR BARD : DAVOL 10/18/2025 [id number] / / [id number] Description:left inguinal documented as of this encounter Visit Diagnoses Diagnosis HTN, goal below 140/90- Primary Unspecified essential hypertension Hyperlipidemia with target LDL less than 100 Other and unspecified hyperlipidemia Elevated prostate specific antigen (PSA) RUQ pain Abdominal pain, right upper quadrant Lump in neck Swelling, mass, or lump in head and neck documented in this encounter Advance Directives * Full Code (Latest Code Status on File) Date Activated Date Inactivated Comments 10/30/2023 7:43 AM 10/30/2023 2:16 PM This order ref lects the patients wishes and were consensually agreed upon. Question Answer Comments Discussion of Advance Directives occurred with: Patient Care Teams Waffle Machine Operator Relationship Specialty Start Date End Date Obdulia Erickson DO [address] [place] [address] [place] [address] PCP - General Internal Medicine 01/01/19 documented as of this encounter"
--- OUTSIDE RECORDS SUMMARY | 2025-02-13 03:37 | External Medical Summary | Summary of Care ---
Author Name Unknown Organization [facility] Address [address] [place] [address] Phone [phone] Care Team Providers Care Sack Repairer Name Role Phone Obdulia Erickson Primary Care Provider + [phone] Reason for Referral * Precert (Within 10 days (routine)) - Authorized Specialty Diagnoses / Procedures Referred By Contac t Referred To Contact Radiology Diagnoses Abdominal mass, unspecified abdominal location Loss of weight Procedures CT ABD/PELVIS W IV CONTRAST - WO ORAL CONTRAST CT ABD/PELVIS W WO IV CONTRAST - WO ORAL CONT Addy Jaime CRNP [address] [place] [address] [place] [address] Phone: tel: fax: Referral ID Status Reason Start Date Expiration Date V isits Requested Visits Authorized [id number] Authorized 02/12/2025 999 999 * Precert (Within 10 days (routine)) - Authorized Specialty Diagnoses / Procedures Referred By Contac t Referred To Contact Radiology Diagnoses Abdominal mass, unspecified abdominal location Loss of weight Procedures CT CHEST W CONTRAST CT CHEST W WO CONTRAST Addy Jaime CRNP [address] [place] [address] [place] [address] Phone: tel: fax: Referral ID Status Reason Start Date Expiration Date V isits Requested Visits Authorized [id number] Authorized 02/12/2025 999 999 Reason for Visit * Reason Onset Date Comments Abnormal Test Results 02/12/2025 Encounter Details Date Type Department Care Team (Late st Contact Info) Description 02/12/2025 Telephone Family Medicine Maurizio [address] [place] [phone] Addy Jaime CRNP [address] [place] [address] [place] [address] Abnormal Test Results Allergies Active Allergy Reactions Criticality Noted Date [...] 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 Spoke with Dr. Erickson who is recommending ER evaluation. Discussed findings with Glenny and agreeable to going to the ER. Planning to go to [facility]. Called [facility] to give heads up of patients arrival. * Telephone Encounter - Libby Cardozo OSA - 02/12/2025 10:[address] scheduled 02/13/25 at 9 am. Pt aware. * Telephone Encounter - Addy Jaime CRNP - 02/12/2025 9:43 AM EDT Shanta from US stopped over and concerned for masses she saw on US. Still waiting for official radiology report. Spoke with Dr. Erickson and recommended ordering CT scans for better imaging. Spoke with patient to discuss these preliminary findings and agreeable to getting CT scans. Please reach out to help with scheduling. Thanks! documented in this encounter Plan of Treatment Upcoming Encounters Date Type Department Care Team (Late st Contact Info) Description 02/13/2025 9:00 AM EDT Imaging Radiology [address] [place] [address] 02/13/2025 9:30 AM EDT Imaging Radiology [address] [place] [address] Scheduled Orders Name Type Priority Associated Diagnoses Orde r Schedule CT CHEST W CONTRAST Medical Imaging Routine Abdominal mass, unspecified abdominal location Loss of weight Ordered: 02/12/2025 CT ABD/PELVIS W IV CONTRAST - WO ORAL CONTRAST Medical Imaging STAT Abdominal mass, unspecified abdominal location Loss of weight Ordered: 02/12/2025 Health Maintenance Due Date Last Done Comments [...] this encounter Medical Devices Implanted Type Area Clam Bed Laborer Device Identifier Shelf Expiration Date Model / Serial / Lot Lens 20.5 [id number] - [id number] - [id number] Implanted:Qty: 1 on 01/18/2022 by Eliu Santana DO at OR [facility] Left: Eye MURRAY : SURGICAL 03/23/2026 [id number] / [id number] / Patch Mesh Pre-W/Cord Opening - [id number] Implanted:Qty: 1 on 10/30/2023 by Cash Argueta MD at OR [facility] Left: Abdomen CR BARD : DAVOL 10/18/2025 [id number] / / [id number] Description:left inguinal documented as of this encounter Visit Diagnoses Diagnosis Abdominal mass, unspecified abdominal location- Primary Loss of weight documented in this encounter Advance Directives * Full Code (Latest Code Status on File) Date Activated Date Inactivated Comments 10/30/2023 7:43 AM 10/30/2023 2:16 PM This order ref lects the patients wishes and were consensually agreed upon. Question Answer Comments Discussion of Advance Directives occurred with: Patient Care Teams Sack Repairer Relationship Specialty Start Date End Date Obdulia Erickson DO [address] [place] [address] [place] [address] PCP - General Internal Medicine 01/01/19 documented as of this encounter
--- OUTSIDE RECORDS SUMMARY | 2025-02-13 03:37 | External Medical Summary | Summary of Care ---
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 on file Not on file Not on file documented as of this encounter Plan of Treatment Upcoming Encounters Date Type Department Care Team (Late st Contact Info) Description 02/12/2025 9:00 AM EDT Imaging Radiology [address] [place] [address] Pending Results Name Type Priority Associated Diagnoses Date /Time PSA Lab Routine Elevated prostate specific antigen (PSA) 02/10/2025 11:05 AM EDT COMPREHENSIVE METABOLIC PANEL Lab Routine RUQ pain 02/10/2025 11:05 AM EDT CBC WITH WBC DIFFERENTIAL AND ANEMIA REFLEX WORKUP Lab Routine RUQ pain 02/10/2025 11:05 AM EDT ANEMIA CBC Lab Routine RUQ pain 02/10/2025 11:05 AM EDT DIFFERENTIAL, AUTOMATED Lab Routine RUQ pain 02/10/2025 11:05 AM EDT ANEMIA REFLEX CHEMISTRY HOLD Lab Routine RUQ pain 02/10/2025 11:05 AM EDT Health Maintenance Due Date Last Done Comments [...] this encounter Medical Devices Implanted Type Area Plant Production Manager Device Identifier Shelf Expiration Date Model / Serial / Lot Lens 20.5 [id number] - [id number] - [id number] Implanted:Qty: 1 on 01/18/2022 by Eliu Santana DO at OR [facility] Left: Eye MURRAY : SURGICAL 03/23/2026 [id number] / [id number] / Patch Mesh Pre-W/Cord Opening - [id number] Implanted:Qty: 1 on 10/30/2023 by Cash Argueta MD at OR [facility] Left: Abdomen CR BARD : DAVOL 10/18/2025 [id number] / / [id number] Description:left inguinal documented as of this encounter Visit Diagnoses Diagnosis Elevated prostate specific antigen (PSA) RUQ pain Abdominal pain, right upper quadrant documented in this encounter Advance Directives * Full Code (Latest Code Status on File) Date Activated Date Inactivated Comments 10/30/2023 7:43 AM 10/30/2023 2:16 PM This order ref lects the patients wishes and were consensually agreed upon. Question Answer Comments Discussion of Advance Directives occurred with: Patient Care Teams Line Construction Engineer Relationship Specialty Start Date End Date Obdulia Erickson DO [address] [place] [address] [place] [phone] PCP - General Internal Medicine 01/01/19 documented as of this encounter
--- OUTSIDE RECORDS SUMMARY | 2025-02-13 03:37 | External Medical Summary | Summary of Care ---
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 I faxed referral,demo's and notes to [facility] Urology [phone]. Noted on fax cover sheet, I will fax updated PSA to them when finalized. documented in this encounter Plan of Treatment Upcoming Encounters Date Type Department Care Team (Late st Contact Info) Description 02/12/2025 9:00 AM EDT Imaging Radiology [address] [place] [address] Health Maintenance Due [...] this encounter Medical Devices Implanted Type Area Stripper Opaquer Device Identifier Shelf Expiration Date Model / Serial / Lot Lens 20.5 [id number] - [id number] - [id number] Implanted:Qty: 1 on 01/18/2022 by Eliu Santana DO at OR [facility] Left: Eye MURRAY : SURGICAL 03/23/2026 [id number] / [id number] / Patch Mesh Pre-W/Cord Opening - [id number] Implanted:Qty: 1 on 10/30/2023 by Cash Argueta MD at OR [facility] Left: Abdomen CR BARD : DAVOL 10/18/2025 [id number] / / [id number] Description:left inguinal documented as of this encounter Advance Directives * Full Code (Latest Code Status on File) Date Activated Date Inactivated Comments 10/30/2023 7:43 AM 10/30/2023 2:16 PM This order ref lects the patients wishes and were consensually agreed upon. Question Answer Comments Discussion of Advance Directives occurred with: Patient Care Teams Telephone Technician Relationship Specialty Start Date End Date Obdulia Erickson DO [address] [place] [address] [place] [address] PCP - General Internal Medicine 01/01/19 documented as of this encounter
--- OUTSIDE RECORDS SUMMARY | 2025-02-13 03:37 | External Medical Summary | Summary of Care ---
Author Name Unknown Organization [facility] Address [address] [place] [address] Phone [phone] Care Team Providers Care Employment Coordinator Name Role Phone Obdulia Erickson Primary Care Provider + [phone] Reason for Referral * Precert (Within 10 days (routine)) - Authorized Specialty Diagnoses / Procedures Referred By Contac t Referred To Contact Radiology Diagnoses Abdominal mass, unspecified abdominal location Loss of weight Procedures CT ABD/PELVIS W IV CONTRAST - WO ORAL CONTRAST CT ABD/PELVIS W WO IV CONTRAST - WO ORAL CONT Addy Jaime CRNP [address] [place] [address] [place] [address] Phone: tel: fax: Referral ID Status Reason Start Date Expiration Date V isits Requested Visits Authorized [id number] Authorized 02/12/2025 999 999 * Precert (Within 10 days (routine)) - Authorized Specialty Diagnoses / Procedures Referred By Contac t Referred To Contact Radiology Diagnoses Abdominal mass, unspecified abdominal location Loss of weight Procedures CT CHEST W CONTRAST CT CHEST W WO CONTRAST Addy Jaime CRNP [address] [place] [address] [place] [address] Phone: tel: fax: Referral ID Status Reason Start Date Expiration Date V isits Requested Visits Authorized [id number] Authorized 02/12/2025 999 999 Reason for Visit * Reason Onset Date Comments Abnormal Test Results 02/12/2025 Encounter Details Date Type Department Care Team (Late st Contact Info) Description 02/12/2025 Telephone Family Medicine Maurizio [place] [place] [phone] Addy Jaime CRNP [address] [place] [address] [place] [address] Abnormal Test Results Allergies Active Allergy Reactions [...] 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 Spoke with Dr. Erickson who is recommending ER evaluation. Discussed findings with Glenny and agreeable to going to the ER. Planning to go to [facility]. Called [facility] to give heads up of patients arrival. [...] Description 02/13/2025 9:00 AM EDT Imaging Radiology [address] [place] [address] 02/13/2025 9:30 AM EDT Imaging Radiology [address] [place] [address] Scheduled Orders Name Type Priority Associated Diagnoses [...] this encounter Medical Devices Implanted Type Area Technology Development Intern Device Identifier Shelf Expiration Date Model / Serial / Lot Lens 20.5 [id number] - [id number] - [id number] Implanted:Qty: 1 on 01/18/2022 by Eliu Santana DO at OR [facility] Left: Eye MURRAY : SURGICAL 03/23/2026 [id number] / [id number] / Patch Mesh Pre-W/Cord Opening - [id number] Implanted:Qty: 1 on 10/30/2023 by Cash Argueta MD at OR [facility] Left: Abdomen CR BARD : DAVOL 10/18/2025 [id number] / / [id number] Description:left inguinal documented as of this encounter [...] Advance Directives occurred with: Patient Care Teams Employment Coordinator Relationship Specialty Start Date End Date Obdulia Erickson DO [address] [place] [address] [place] [address] PCP - General Internal Medicine 01/01/19 documented as of this encounter
--- OUTSIDE RECORDS SUMMARY | 2025-02-13 03:37 | External Medical Summary | Summary of Care ---
Author Name Unknown Organization [facility] Address [address] [place] [address] Phone [phone] Care Team Providers Care Supervisor Intermediates Name Role Phone Obdulia Erickson Primary Care Provider + [phone] Reason for Referral * Precert (Within 10 days (routine)) - Authorized Specialty Diagnoses / Procedures Referred By Contac t Referred To Contact Radiology Diagnoses Abdominal mass, unspecified abdominal location Loss of weight Procedures CT ABD/PELVIS W IV CONTRAST - WO ORAL CONTRAST CT ABD/PELVIS W WO IV CONTRAST - WO ORAL CONT Addy Jaime CRNP [address] [place] [address] [place] [address] Phone: tel: fax: Referral ID Status Reason Start Date Expiration Date V isits Requested Visits Authorized [id number] Authorized 02/12/2025 999 999 * Precert (Within 10 days (routine)) - Authorized Specialty Diagnoses / Procedures Referred By Contac t Referred To Contact Radiology Diagnoses Abdominal mass, unspecified abdominal location Loss of weight Procedures CT CHEST W CONTRAST CT CHEST W WO CONTRAST Addy Jaime CRNP [address] [place] [address] [place] [address] Phone: tel: fax: Referral ID Status Reason Start Date Expiration Date V isits Requested Visits Authorized [id number] Authorized 02/12/2025 999 999 Reason for Visit * Reason Onset Date Comments Abnormal Test Results 02/12/2025 Encounter Details Date Type Department Care Team (Late st Contact Info) Description 02/12/2025 Telephone Family Medicine Maurizio Jesus [address] [place] [phone] Addy Jaime CRNP [address] [place] [address] [place] [address] Abnormal Test Results Allergies Active Allergy Reactions [...] 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 Spoke with Dr. Erickson who is recommending ER evaluation. Discussed findings with Glenny and agreeable to going to the ER. Planning to go to [facility]. Called [facility] to give heads up of patients arrival. [...] Description 02/13/2025 9:00 AM EDT Imaging Radiology [address] [place] [address] 02/13/2025 9:30 AM EDT Imaging Radiology [address] [place] [address] Scheduled Orders Name Type Priority Associated Diagnoses [...] this encounter Medical Devices Implanted Type Area Counter Dish Carrier Device Identifier Shelf Expiration Date Model / Serial / Lot Lens 20.5 [id number] - [id number] - [id number] Implanted:Qty: 1 on 01/18/2022 by Eliu Santana DO at OR [facility] Left: Eye MURRAY : SURGICAL 03/23/2026 [id number] / [id number] / Patch Mesh Pre-W/Cord Opening - [id number] Implanted:Qty: 1 on 10/30/2023 by Cash Argueta MD at OR [facility] Left: Abdomen CR BARD : DAVOL 10/18/2025 [id number] / / [id number] Description:left inguinal documented as of this encounter [...] Advance Directives occurred with: Patient Care Teams Supervisor Intermediates Relationship Specialty Start Date End Date Obdulia Erickson DO [address] [place] [address] [place] [address] PCP - General Internal Medicine 01/01/19 documented as of this encounter
--- OUTSIDE RECORDS SUMMARY | 2025-02-13 03:37 | External Medical Summary | Summary of Care ---
Author Name Unknown Organization [facility] Address [address] [place] [address] Phone [phone] Care Team Providers Care Chute Loader Name Role Phone Obdulia Erickson DO Primary Care Provider [phone] Reason for Visit * Reason Onset Date Comments Referral 02/10/2025 [facility] Encounter Details Date Type Department Care Team ([facility] st Contact Info) Description 02/10/2025 Telephone Family Medicine [address] [phone] Obdulia Erickson [address] [address] Referral ([facility]) Allergies Active Allergy Reactions Criticality Noted Date Comments Atorvastatin Muscle pain 01/06/2018 documented as of this encounter (statuses as of 02/11/2025) Medications FLAXSEED (LINSEED) PO POWD daily Active Lisinopril 10 MG Oral Tablet (Prinivil)Indica tions:HTN, goal below 140/90 Take 1 Tablet by mouth in the morning. 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 I faxed referral,demo's and notes to [facility] [phone]. Noted on fax cover sheet, I will fax updated PSA to them when finalized. documented in this encounter Plan of Treatment Upcoming Encounters Date Type Department Care Team (Late st Contact Info) Description 02/12/2025 9:00 AM EDT Imaging Radiology [address] [place] [address] Health Maintenance Due [...] this encounter Medical Devices Implanted Type Area Manager Distribution Device Identifier Shelf Expiration Date Model / Serial / Lot Lens 20.5 [id number] - [id number] - [id number] Implanted:Qty: 1 on 01/18/2022 by Eliu Santana DO at OR [facility] Left: Eye MURRAY : SURGICAL 03/23/2026 [id number] / [id number] / Patch Mesh Pre-W/Cord Opening - [id number] Implanted:Qty: 1 on 10/30/2023 by Cash Argueta MD at OR [facility] Left: Abdomen CR BARD : DAVOL 10/18/2025 [id number] / / [id number] Description:left inguinal documented as of this encounter Advance Directives * Full Code (Latest Code Status on File) Date Activated Date Inactivated Comments 10/30/2023 7:43 AM 10/30/2023 2:16 PM This order ref lects the patients wishes and were consensually agreed upon. Question Answer Comments Discussion of Advance Directives occurred with: Patient Care Teams Chute Loader Relationship Specialty Start Date End Date Obdulia Erickson DO [address] [place] [address] [place] [phone] PCP - General Internal Medicine 01/01/19 documented as of this encounter
--- OUTSIDE RECORDS SUMMARY | 2025-02-13 03:38 | External Medical Summary ---
Author Name Unknown Address Unknown Organization K01:[place] [facility] [place] [address] [facility] [address] Laboratory Report Ordering Provider Test Date Status MARNI KU 02/10/2025 11:05:05 Final Observation Date Value Abnormality Reference (Units ) Status WBC, Total 02/10/2025 11:05:05 6.60 4.00-10.8 0 (K/uL) Final RBC 02/10/2025 11:05:05 4.46 4.50-5.25 (M/uL) Final Hemoglobin 02/10/2025 11:05:05 13.5 Below low normal 14 .0-16.8 (g/dL) Final Anemia reflex testing trigge rs on a HGB < 12.0 for Females and HGB < 13.0 for Males in accordance with the WHO Anemia Guidelines
Anemia reflex testing triggers on a HGB < 12.0 for Females and HGB < 13.0 for Males in accordance with the WHO Anemia Guidelines HCT 02/10/2025 11:05:05 41.8 40.0-48.4 (%) Final MCV 02/10/2025 11:05:05 93.7 82.0-99.5 (fL) Final MCH 02/10/2025 11:05:05 30.3 27.0-34.0 (pg) Final MCHC 02/10/2025 11:05:05 32.3 32.0-36.0 (g/dL) Final RDW 02/10/2025 11:05:05 12.9 11.5-15.5 (%) Final Platelets 02/10/2025 11:05:05 235 140-400 (K /uL) Final MPV 02/10/2025 11:05:05 10.4 6.6-11.1 ( fL) Final Nucleated erythrocytes/100 leukocytes [Ratio] in Blood by Automated count 02/10/2025 11:05:05 0 <=0 (/100 WBCs) Fi [facility] Performing Location [place] [facility] [place] [address] [facility] [address]
--- OUTSIDE RECORDS SUMMARY | 2025-02-13 03:38 | External Medical Summary ---
Author Name Unknown Address Unknown Organization K01:LAB[facility]ATORY [facility] - [address] [place] [address] Laboratory Report Ordering Provider Test Date Status MARNI KU 02/10/2025 11:05:05 Final Observation Date Value Abnormality Reference (Units ) Status PSA 02/10/2025 11:05:05 8.02 Above high normal <4 .10 (ng/mL) Final Performing Location LABORATORY [facility] - [address] [place] [address]
--- OUTSIDE RECORDS SUMMARY | 2025-02-13 03:38 | External Medical Summary | Summary of Care ---
Author Name Unknown Organization [facility] Address [address] [place] [address] Phone [phone] Care Team Providers Care Polytechnic Registrar Name Role Phone Obdulia Erickson Primary Care Provider [phone] Encounter Details Date Type Department Care Team (Late st Contact Info) Description 11/13/2024 Population Health External Data Unspecified Department Allergies Active Allergy Reactions Criticality Noted Date Comments Atorvastatin Muscle pain 01/06/2018 documented as of this encounter (statuses as of 11/13/2024) Medications FLAXSEED (LINSEED) PO POWD daily Active Lisinopril 20 MG Oral Tablet (Prinivil)Indica tions:takes in the evening Take 1 Tablet by mouth at bedtime. 90 Tablet 3 06/20/2024 Active documented as of this encounter (statuses as of 11/13/2024) Active Problems Problem Noted Date Diagnosed Date Family history of prostate cancer in father 12/20 History of retinal detachment 06/20/2021 Hx of nonmelanoma skin cancer 05/12/2019 Overview (05/12/2019): basal cell carcinoma (central back 2010) Actinic keratoses 05/12/2019 History of basal cell cancer 07/01/2012 Overview (07/01/2012): central back 06/01 HTN, goal below 140/90 06/02/2011 Hyperlipidemia with target LDL less than 100 09/2011 documented as of this encounter (statuses as of 11/13/2024) Resolved Problems Problem Noted Date Diagnosed Date Resolved Date Left inguinal hernia 10/30/2023 024 Prediabetes 01/14/2017 01/06/2019 Tobacco use disorder 06/02/2011 014 HTN, goal below 130/80 03/06/201106/02 documented as of this encounter (statuses as of 11/13/2024) Immunizations Name Administration Dates Next Due COVID-19 [...] 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 on 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 Not on file Not on file documented as of this encounter Plan of Treatment Upcoming Encounters Date Type Department Care Team (Late st Contact Info) Description 02/10/2025 10:30 AM EDT Office Visit Family Medicine [address] [place] [phone] Obdulia Erickson[address] [place] [address] Health Maintenance Due Date Last Done Comments Pneumococcal Vaccine: 50+ Years (1 of 1 - PCV) 1997 Zoster Vaccines (1 of 2) 1997 Adult Wellness Visit 06/11/2016 06/11/2015 Depression Screening 01/02/2020 01/01/2019 DTap/Tdap Vaccines (3 - Td or Tdap) [...] this encounter Medical Devices Implanted Type Area Senior Database Engineer Device Identifier Shelf Expiration Date Model / Serial / Lot Lens 20.5 [id number] - [id number] - [id number] Implanted:Qty: 1 on 01/18/2022 by Eliu Santana DO at OR [facility] Left: Eye MURRAY : SURGICAL 03/23/2026 [id number] / [id number] / Patch Mesh Pre-W/Cord Opening - [id number] Implanted:Qty: 1 on 10/30/2023 by Cash Argueta MD at OR [facility] Left: Abdomen CR BARD : DAVOL 10/18/2025 [id number] / / [id number] Description:left inguinal documented as of this encounter Advance Directives * Full Code (Latest Code Status on File) Date Activated Date Inactivated Comments 10/30/2023 7:43 AM 10/30/2023 2:16 PM This order ref lects the patients wishes and were consensually agreed upon. Question Answer Comments Discussion of Advance Directives occurred with: Patient Care Teams Polytechnic Registrar Relationship Specialty Start Date End Date Obdulia Erickson DO [address] [place] [address] [place] [address] PCP - General Internal Medicine 01/01/19 documented as of this encounter
--- OUTSIDE RECORDS SUMMARY | 2025-02-13 03:38 | External Medical Summary | Summary of Care ---
Author Name Unknown Organization [facility] Address [address] [place] [address] Phone [phone] Care Team Providers Care Can Line Examiner Name Role Phone Obdulia Erickson DO Primary Care Provider [phone] Reason for Referral * Evaluate & Treat - Unlimited Visits (Within 3 days (urgent)) - Authorized Specialty Diagnoses / Procedures Referred By Abeba mancia Referred To Contact Urology Diagnoses Elevated prostate specific antigen (PSA) Obdulia Erickson DO [address] [place] [address] [place] [address] Phone: tel: fax: Referral ID Status Reason Start Date Expiration Date Visits Requested Visits Authorized [id number] Authorized Specialty Services Required 02/10/2025 999 999 [...] 10:30 AM EDT Office Visit Family Medicine [address] [place] [phone] Obdulia Erickson DO [address] [place] [address] [place] [address] HTN, goal below 140/90*; Hyperlipidemia with target [...] Industry Job 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 Job 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 Not on file [...] Description 02/12/2025 9:00 AM EDT Imaging Radiology [address] [place] [address] Pending Results Name [...] this encounter Medical Devices Implanted Type Area Road Commissioner Device Identifier Shelf Expiration Date Model / Serial / Lot Lens 20.5 [id number] - [id number] - [id number] Implanted:Qty: 1 on 01/18/2022 by Eliu Santana DO at OR [facility] Left: Eye MURRAY : SURGICAL 03/23/2026 [id number] / [id number] / Patch Mesh Pre-W/Cord Opening - [id number] Implanted:Qty: 1 on 10/30/2023 by Cash Argueta MD at OR [facility] Left: Abdomen CR BARD : DAVOL 10/18/2025 [id number] / / [id number] Description:left inguinal documented as of this encounter [...] Advance Directives occurred with: Patient Care Teams Can Line Examiner Relationship Specialty Start Date End Date Obdulia Erickson DO [address] [place] [address] [place] [address] PCP - General Internal Medicine 01/01/19 documented as of this encounter"
--- OUTSIDE RECORDS SUMMARY | 2025-02-13 03:38 | External Medical Summary ---
Author Name Unknown Address Unknown Organization K01:[facility] [place] [address] [place] [address] Laboratory Report Ordering Provider Test Date Status MARNI KU 02/10/2025 11:05:05 Final Observation Date Value Abnormality Reference (Units ) Status BUN 02/10/2025 11:05:05 17 6-20 (mg/dL) Final Creatinine 02/10/2025 11:05:05 1.0 0.6-1.2 (mg/dL) Final Glomerular filtration rate/1.73 sq M.predicted [Volume Rate/Area] in Serum, Plasma or Blood by Creatinine-based formula (CKD-EPI) 02/10/2025 11:05:05 80 >=60 (mL/min) Final eGFR is calculated based on the CKD-EPI 2020 equation. Sodium 02/10/2025 11:05:05 141 135-146 (m mol/L) Final Potassium 02/10/2025 11:05:05 4.0 3.5-5.1 (m mol/L) Final Cl 02/10/2025 11:05:05 103 98-107 (mm ol/L) Final CO2 02/10/2025 11:05:05 25 22-32 (mmo l/L) Final Anion gap 02/10/2025 11:05:05 13 7-15 (mmol /L) Final Glucose 02/10/2025 11:05:05 88 70-120 (mg /dL) Final Albumin 02/10/2025 11:05:05 3.9 3.8-5.0 (g /dL) Final AST (Aspartate aminotransferase) 02/10/2025 11:05:05 60 Above high normal 10-50 (U/L) Final Alk Phos 02/10/2025 11:05:05 227 Above high normal 35 -130 (U/L) Final Bilirubin, Total 02/10/2025 11:05:05 0.7 <=1 .2 (mg/dL) Final Calcium 02/10/2025 11:05:05 9.0 8.4-10.2 ( mg/dL) Final Protein 02/10/2025 11:05:05 5.7 Below low normal 6.0 -8.3 (g/dL) Final ALT (Alanine aminotransferase) 02/10/2025 11:05:05 37 10-50 (U/L) Jean khan Performing Location LAB[facility] [place] - [address] [facility] [address]
[2025-02-13 07:26] VITALS: BP 124/73; PULSE 70; RESP 16; TEMP 98.1; O2SAT 97
[2025-02-13 09:06] LABS: Albumin Globulin Ratio 1.7 (0.9-2); Albumin Level 3.5 gm/dl (3.4-5.0); Calcium 8.2 mg/dl (8.6-10.3); Creatinine Clr Calc Pharmacy 52.6 ml/min; Globulin 2.1 gm/dl (2.5-4.0); Potassium 4.4 mmol/L (3.5-5.1); Total Protein 5.6 gm/dl (6.0-8.3)
--- OUTSIDE RECORDS SUMMARY | 2025-02-13 12:31 | External Medical Summary | Summary of Care ---
Author Name Unknown Organization [facility] Address [address] [place] [address] Phone [phone] Care Team Providers Care Small Engine Specialist Name Role Phone Obdulia Erickson Primary Care Provider [phone] Reason for Referral * Precert (Within 10 days (routine)) - Authorized Specialty Diagnoses / Procedures Referred By Contac t Referred To Contact Radiology Diagnoses Abdominal mass, unspecified abdominal location Loss of weight Procedures CT ABD/PELVIS W IV CONTRAST - WO ORAL CONTRAST CT ABD/PELVIS W WO IV CONTRAST - WO ORAL CONT Addy Jaime CRNP [address] [place] [address] [place] [address] Phone: tel: fax: Referral ID Status Reason Start Date Expiration Date V isits Requested Visits Authorized [id number] Authorized 02/12/2025 999 999 * Precert (Within 10 days (routine)) - Authorized Specialty Diagnoses / Procedures Referred By Contac t Referred To Contact Radiology Diagnoses Abdominal mass, unspecified abdominal location Loss of weight Procedures CT CHEST W CONTRAST CT CHEST W WO CONTRAST Addy Jaime CRNP [address] [place] [address] [place] [address] Phone: tel: fax: Referral ID Status Reason Start Date Expiration Date V isits Requested Visits Authorized [id number] Authorized 02/12/2025 999 999 Reason for Visit * Reason Onset Date Comments Abnormal Test Results 02/12/2025 Encounter Details Date Type Department Care Team (Late st Contact Info) Description 02/12/2025 Telephone Family Medicine Maurizio Jesus [place] [place] [phone] Addy Jaime CRNP [address] [place] [address] [place] [address] Abnormal Test Results Allergies Active Allergy Reactions [...] 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 Given need for additional evaluation and treatment, recommend ER for likely admission. I am not in the office today. Pt contacted by Addy re: my recommendations. * Telephone Encounter - Addy Jaime CRNP - 02/12/2025 10:21 AM EDT US results reviewed. Spoke with Dr. Erickson who is recommending ER evaluation. Discussed findings with Glenny and agreeable to going to the ER. Planning to go to [facility]. Called [facility] to give heads up of patients arrival. [...] Description 02/13/2025 9:00 AM EDT Imaging Radiology [facility] [place] [place] [address] 02/13/2025 9:30 AM EDT Imaging Radiology [address] [place] [address] Scheduled Orders Name Type Priority Associated Diagnoses [...] this encounter Medical Devices Implanted Type Area Set Up Mechanic Automatic Line Device Identifier Shelf Expiration Date Model / Serial / Lot Lens 20.5 [id number] - [id number] - [id number] Implanted:Qty: 1 on 01/18/2022 by Eliu Santana DO at OR [facility] Left: Eye MURRAY : SURGICAL 03/23/2026 [id number] / [id number] / Patch Mesh Pre-W/Cord Opening - [id number] Implanted:Qty: 1 on 10/30/2023 by Cash Argueta MD at OR [facility] Left: Abdomen CR BARD : DAVOL 10/18/2025 [id number] / / [id number] Description:left inguinal documented as of this encounter [...] Advance Directives occurred with: Patient Care Teams Small Engine Specialist Relationship Specialty Start Date End Date Obdulia Erickson DO [address] [place] [address] [place] [address] PCP - General Internal Medicine 01/01/19 documented as of this encounter
--- NOTE | 2025-02-13 13:34 | Ultrasound Report ---
US soft tissue head and neck HISTORY: 79 years-old Male enlarged supraclavicular lymph node COMPARISON: None TECHNIQUE: Multiple real-time sonographic images of the left neck tissues were obtained assessing gra yscale appearance and color flow FINDINGS: Pathologic left-sided lymph nodes, at least 3 in number. The first node measures 2.8 x 2.8 x 1.2 cm, the second measures 2.5 x 2.7 x 1.3 cm and the third measures 1.8 x 0.4 x 1.8 cm. No central fatty hi la are seen. IMPRESSION: Pathologic lymphadenopathy. Correlation with FNA recommended. ACT 112: Negative or not required by law. The above report was generated using voice recognition software. It may contain grammatical, syntax o r spelling errors. Electronically signed by: Cordell Gomez M.D. 02/13/2025 1:32 PM
--- NOTE | 2025-02-13 13:53 | Ultrasound Report ---
Ultrasound guided left supraclavicular lymph node FNA and core biopsy INDICATION: Supraclavicular lymphadenopathy; hepatic lesions PROCEDURE: Procedure and risks were explained. Informed consent was obtained. The left neck was prepp ed and draped in sterile fashion. 1% lidocaine was utilized for skin anesthesia. Utilizing ultrasound guidance, an 18-gauge core biopsy needle was advanced into the abnormal appearin g left supraclavicular lymph node. Ultrasound images were obtained. 2 cores were obtained and given t o the pathologist for review. One FNA with a 25-gauge needle was also obtained utilizing ultrasound g uidance and sent for flow cytometry. The needle was removed and Band-Aid applied. The patient tolerat ed the procedure well. IMPRESSION: Left supraclavicular lymph node FNA and core biopsy as above. Performed, dictated, and signed by Chucho Aly PA-C; to be co-signed by Dr. Yony Santizo. Electronically signed by: Yony Santizo M.D. 02/13/2025 2:24 PM
--- NOTE | 2025-02-13 16:50 | Discharge Summary ---
Discharge Summary Date of Service February 13, 2025 Principal Dx & Hospital Course #1 = Principal Diagnosis (1) Liver masses: (2) Elevated liver enzymes: (3) Weight loss: (4) Fatigue: (5) Hypertension: (6) Hyperlipidemia: Plan 79 year old male with PMH significant for HTN, HLD, and elevated PSA who presented to the ED today after an abdominal ultrasound showed multiple liver masses concerning for metastasis. Liver masses Hepatomegaly appreciated and left supraclavicular enlarged lymph node Plan for US guided biopsy by IR in the am Ordered CEA, CA-19, PSA, AFP, pepsinogen Elevated liver enzymes Weight loss Likely secondary to possible liver metastasis HTN On lisinopril with recent dose reduction from 20mg to 10mg due to low BPs BPs stable here and patient did not take this am - will hold lisinopril for now Monitor BPs and consider resumption of lisinopril if elevated HLD Not on medications at home Notes For Next Care Provider 79 year old male with PMH significant for HTN, HLD, and elevated PSA who presented to the ED today by recommendation of his PCP after concerning imaging. 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 On medicine, LN biopsies performed with no immediate post op complications. On 02/13/2025 patient medically stable for discharge home. To do: [ ] f/u with PCP, oncology [ ] f/u biopsy results Medication Changes From Visit -see below Admission HPI Per Admitting Provider 79 year old male with PMH significant for HTN, HLD, and elevated PSA who presented to the ED today by recommendation of his PCP after concerning imaging. He was seen by his PCP on 02/10 for routine follow up but mentioned a painful lump in his RUQ x1 month as well as poor appetite, fatigue, and weight loss. He had an abdominal ultrasound done which showed multiple liver masses suspicious for metastasis and was referred to the ED. He reports intermittent RUQ pain that feels like a bharti horse and only comes on when he makes certain movements. He also endorses a gradual weight loss over the last year of approximately 10 lbs. He denies fevers, chills, night sweats, cough, cold symptoms, chest pain, SOB, other abdominal pain, N/V/D, melena, hematochezia. Discharge Exam Gen: A&O 3 NAD, cachexia noted HEENT: NCAT, EOMI, not icteric. External ears normal. No rhinorrhea. Moist mucous membranes. Neck: Supple, full range of motion, no observable masses, No meningeal sign. Lungs: No Respiratory distress. CV: RRR, no edema. Abdomen: Soft, nondistended, No rebound tenderness. MSK: No joint swelling, no redness. Skin: No rashes, petechiae, lesions. Normal color per patient. Neuro: Normal Gait, Grossly intact. Psych: Appropriate for situation. Updated Medication List Medication Instructions Recorded Confirmed Type lisinopril 10 mg tablet 10 mg PO DAILY 02/12/25 02/12/25 History ondansetron 4 mg disintegrating 4 mg PO Q8H PRN nausea and 02/13/25 Rx tablet vomiting #20 tabs Hospital Stay Data Consultations 02/12/25 14:10 ED Decision to Admit Stat Diagnostic Imagining Performed 02/12/25 11:31 CT abd pelvis IV con only Stat 02/13/25 IR FNA lymph node US Routine 02/13/25 00:00 IR biopsy lymph US Urgent US soft tissue head and neck Stat Pending Results Patient Have Any Pending Studies at Discharge: No Discharge Instructions Given to Patient (Per Discharging Provider) 1. Please follow up with PCP and oncology to determine next steps and treatment plan. 2. Take medications as prescribed. Total Time Total Time Spent Total Time Spent (In Minutes): I spent a total of 35 minutes in direct patient care, including [id number] time with the patient and/or family, reviewing medical records, ordering and reviewing diagnostic tests, and coordinating care with other healthcare providers. This time includes: history taking, physical examination, medical decision making, counseling, ECG interpretation, imaging interpretation, lab interpretation, orders, and education, excluding time spent in the performance of separately billed services.
[2025-02-17 11:47] LABS: AFP Tumor Marker Serum 480.5 ng/mL (<6.1)
== END 2025-02-13 15:04 | disposition home or self-care (01) ==
LOC: ED 11:13 → 3E 11:13 → SUATTDRO 15:57 → 3E 18:21